=== PATIENT | male | born 1980 | race Caucasian/White ===

== ENCOUNTER → 2016-06-05 | Outpatient (CLI) | payer BC ==
[2016-06-05 17:08] LABS: HEPATITIS B AB POS
== END | disposition home or self-care (01) ==
LOC: C.LAB 16:11
PROVIDERS: ATTEND Specialist
DX: Z11.3 Encounter for screening for infections with a predominantly sexual mode of transmission (principal); Z11.4 Encounter for screening for human immunodeficiency virus [HIV]; Z11.59 Encounter for screening for other viral diseases

== ENCOUNTER 2017-10-22 17:00 | Emergency (ER) | payer BC, OTHER ==
[~2017-10-22] VITALS: Ht 172.7 cm; Wt 91.9 kg
[2017-10-22 17:06] VITALS: TEMP 36.9; Ht 172.7 cm; Wt 91.9 kg
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
[2017-10-22 18:51] VITALS: BP 173/108; PULSE 113; O2SAT 95
== END 2017-10-22 18:54 | disposition home or self-care (01) ==
LOC: C.EDB 17:01 → C.EDD 18:54
DX: M54.2 Cervicalgia (principal); V43.52XA Car driver injured in collision with other type car in traffic accident, initial encounter; R03.0 Elevated blood-pressure reading, without diagnosis of hypertension